=== PATIENT | female | born 1990 | race Two or more races ===

== ENCOUNTER → 2024-07-10 | Emergency (ER) | payer OTHER ==
[~2024-07-10] VITALS: Ht 157.5 cm; Wt 63.5 kg
[~2024-07-10] MED LIST: FLUOXETINE HCL60 MG PO
== END | disposition left against medical advice (07) ==
LOC: ER 07:18
DX: Z53.21 Procedure and treatment not carried out due to patient leaving prior to being seen by health care provider (principal)